=== PATIENT | female | born 1975 | race Caucasian/White ===

== ENCOUNTER 2020-11-20 00:20 | Emergency (ER) | payer BC ==
[2020-11-20] MEDS ORDERED: VENTOLIN HFA 66.7 GM INH (01:42)
[2020-11-20] MEDS ORDERED: ZOFRAN ODT 4 MG4 MG PO (01:42)
[2020-11-20] MEDS ORDERED: LODINE CAP 300300 MG PO (01:42)
== END 2020-11-20 01:55 | disposition home or self-care (01) ==
LOC: ER1 00:20
DX: R11.2 Nausea with vomiting, unspecified (principal); R19.7 Diarrhea, unspecified; R53.83 Other fatigue; R52 Pain, unspecified; Z20.822 Contact with and (suspected) exposure to COVID-19; Z88.0 Allergy status to penicillin
CPT/HCPCS: 0240U; 99284